=== PATIENT | male | born 1940 | race Caucasian/White ===

== ENCOUNTER 2021-11-22 09:30 | Day surgery (SDC) | payer MEDICARE, OTHER ==
[2021-11-20 16:27] LABS: BASOPHILS % (AUTO) 0.1 % (0.0-5.0); HEMATOCRIT 47.6 % (42-54); LYMPHOCYTES % (AUTO) 24.6 % (21.0-51.0); MEAN CORPUSCULAR HEMOGLOBIN 29.4 pg (27.0-33.0); MEAN CORPUSCULAR HGB CONC 32.4 g/dL (32.0-36.0); MEAN CORPUSCULAR VOLUME 90.8 fL (79-99); MONOCYTES % (AUTO) 28.7 % (3.0-13.0); NEUTROPHILS % (AUTO) 45.1 % (40.0-77.0); PLATELET COUNT (AUTO) 147 K/uL (130-400); RED BLOOD CELL COUNT(AUTO) 5.24 MIL/uL (4.50-6.20); RED CELL DISTRIBUTION WIDTH 13.5 % (11.0-15.5); WHITE BLOOD COUNT (AUTO) 7.8 K/uL (4.8-10.8)
[2021-11-20 16:31] LABS: APPEARANCE,URINE CLEAR (CLEAR); BILIRUBIN,URINE NEGATIVE (NEGATIVE); COLOR,URINE YELLOW (YELLOW); GLUCOSE, URINE (UA) NEGATIVE (NEGATIVE); KETONES,URINE NEGATIVE (NEGATIVE); LEUKOCYTE ESTERASE ,URINE NEGATIVE (NEGATIVE); NITRATE,URINE NEGATIVE (NEGATIVE); OCCULT BLOOD,URINE NEGATIVE (NEGATIVE); PROTEIN,URINE NEGATIVE (NEGATIVE); UROBILINOGEN,URINE 0.2 mg/dL (0.2-1.0)
[2021-11-20 16:38] LABS: INR 1.03 (0.85-1.15); PROTHROMBIN TIME 11.2 SEC (9.6-11.6)
[2021-11-20 16:39] LABS: PARTIAL THROMBOPLASTIN TIME 30.1 SEC (26.3-35.5)
[2021-11-20 16:54] LABS: CREATININE 1.2 mg/dL (0.5-1.5); POTASSIUM 4.9 mmol/L (3.5-5.1)
[2021-11-21 09:24] VITALS: BP 156/67
[2021-11-22] VITALS (9 sets, daily range): BP systolic 120–140; BP diastolic 58–73
[~2021-11-22] VITALS: Ht 172.7 cm; Wt 78.6 kg
[~2021-11-22 09:30] MED LIST: 0.9% NACL 500ML IV.SOLN 500 ML IV SCH; ASCO500C18 PO; CLOP75TA32 PO; DiphenhydrAMINE HCL 50 MG/ML VIAL IVP SCH; FURO20TA4 PO; GLUC-29 PO; L.AC1CAP6 PO; METO50TA18 PO; PANT20TA PO; TADA5TAB PO; TAMS-1 PO; VALS160T29 PO
[2021-11-22] MEDS ORDERED: 0.9%NACL 1000ML 1,000 ML IV ONE (10:17)
[2021-11-22] MEDS ORDERED: IOHEXOL-350 50ML VIAL IV ONE (11:42)
[2021-11-22] MEDS ORDERED: NITROGLYCERIN 50MG VIAL ONE (11:42)
[2021-11-22] MEDS ORDERED: IOHEXOL 350 MG/ML 100ML INFUS..BTL IV ONE ×2 (11:42→13:02)
[2021-11-22] MEDS ORDERED: LIDOCAINE HCL 400MG/20ML VIAL ONE (11:42)
[2021-11-22] MEDS ORDERED: ONDANSETRON 4MG INJ ONE (11:56)
[2021-11-22] MEDS ORDERED: FENTANYL CITRATE PF 50 MCG/1 ML 2ML VIAL ONE (11:57)
[2021-11-22] MEDS ORDERED: MIDAZOLAM HCL 1 MG/ML 2ML VIAL ONE (11:57)
[2021-11-22] MEDS ORDERED: HYDRALAZINE 20MG/ML VIAL ONE (13:18)
[2021-11-22] MEDS ORDERED: 0.9%NACL 1000ML 1,000 ML IV SCH (14:00)
== END 2021-11-22 18:25 | disposition home or self-care (01) ==
LOC: DAH 09:30
PROVIDERS: ATTEND Internal Medicine Interventional Cardiology
DX: I25.10 Atherosclerotic heart disease of native coronary artery without angina pectoris (principal); I08.0 Rheumatic disorders of both mitral and aortic valves; I11.9 Hypertensive heart disease without heart failure; I25.2 Old myocardial infarction; E78.5 Hyperlipidemia, unspecified; I70.203 Unspecified atherosclerosis of native arteries of extremities, bilateral legs; I25.9 Chronic ischemic heart disease, unspecified; Z95.5 Presence of coronary angioplasty implant and graft; Z79.899 Other long term (current) drug therapy; Z79.01 Long term (current) use of anticoagulants
CPT/HCPCS: 36415; 80048; 81003; 85025; 85610; 85730; 93005; 93461; A4215; A4216; A4221; A4222; A4223 ×3; A4344; A4606; A4663; C1760; C1894 ×3; J0360; J1200; J1644; J2250; J2405; J3010; J3490 ×2; J7030; Q9965 ×2; Q9967 ×3; 99156; 99157